=== PATIENT | male | born 1940 | race Asian ===

== ENCOUNTER → 2017-11-05 | Outpatient (CLI) | payer MEDICARE, OTHER ==
[2017-11-05] MEDS: IOHEXOL 300MG/ML 150 ML BTL (10:30)
[2017-11-05] MEDS: SOD CHLORIDE 0.9% 100 ML (10:35)
== END | disposition home or self-care (01) ==
LOC: C/S 08:54
DX: R51 Headache (principal)
CPT/HCPCS: 70470